=== PATIENT | female | born 1965 | race Caucasian/White ===

== ENCOUNTER 2019-10-13 06:56 | Day surgery (SDC) | payer OTHER, SELFPAY ==
[2019-10-11 10:54] VITALS: BMI 26.6
[2019-10-13 07:12] VITALS: PULSE 99; RESP 18; TEMP 36.6; O2SAT 98
[2019-10-13] MEDS: sodium chloride 0.9% 1,000 ML 30 ML IV (07:20)
--- NOTE | 2019-10-13 07:29 | ANES.PREANE2 ---
Pre-Anesthetic Assessment Pre-Anesthetic Assessment: Height/Weight: Height 1.65 m Weight 72.575 kg Temp Pulse Resp Pulse Ox 97.8 F 99 18 98 10/13/19 07:12 10/13/19 07:12 10/13/19 07:12 10/13/19 07:12 Proposed Procedure: Operation Date: 10/13/19 08:35 Proposed Procedures p Colonoscopy(Not Applicable) - Hussein Flor MD Last intake: Intake Last Liquid Date 10/12/19 Last Liquid Time 17:00 Last Solid Date 10/11/19 Last Solid Time 18:00 Social: Social History: Alcohol (occ) and No tobacco Exam: Pre-Anes Outpt Exam: alert, oriented x 3, clear to auscultation bilaterally and regular rate & rhythm Airway: Submandibular: WNL Cervical ROM: WNL MP: 2 Dentition: Other (teeth ok) History/ROS: No significant history except as noted Pulmonary: Pulmonary: None reported CV/HEM: CV/HEM: None reported : : None reported Hepatic: Hepatic: None reported GI: GI: None reported Metabolic: Metabolic: None reported Musc/skel: Musc/skel: None reported Neuropsych: Neuropsych: None reported Anesthetic Plan: ASA status: 2 Anesthesia: Anesthesia Evaluation and MAC Risk of > 500 ml blood loss (7ml/kg in children): No PFSH Anesthesia PFSH: Medical History Abdominal pain Gastroenteritis Herniated disc Migraines Surgical History History of hemorrhoidectomy History of hysterectomy History of shoulder surgery History of tubal ligation Data Anesthesia Cardiac Studies: No Data to Display
--- NOTE | 2019-10-13 07:52 | W.PM.OPSUD ---
Surgery/Procedure H&P Update DATE OF PROCEDURE: October 13, 2019 DATE H&P PERFORMED: 10/04/19 H&P UPDATE INFORMATION: No changes to prior documentation PLANNED PROCEDURE: Operation Date: 10/13/19 08:35 Proposed Procedures p Colonoscopy(Not Applicable) - Hussein Flor MD
[2019-10-13 09:00] VITALS: BP 113/68; PULSE 93; RESP 16; TEMP 36.6; O2SAT 98
--- NOTE | 2019-10-13 09:04 | ANE.PACU2 ---
Inpatient post-anesthesia follow up: Airway intact: Yes Vital signs: Temperature 97.8 F Pulse Rate 93 Respiratory Rate 16 Blood Pressure 113/68 Pulse Oximetry 98 Oxygen Delivery Me thod Nasal Cannula Oxygen Flow Rate 4 Fraction of Inspir ed Oxygen Hydration adequate: Yes Nausea and vomiting: No Pain level: 1 Mental status: Baseline
[2019-10-13 09:15] VITALS: BP 117/75; PULSE 86; RESP 18; O2SAT 100
== END 2019-10-13 09:24 | disposition home or self-care (01) ==
PROVIDERS: PCP Family Medicine; Visit Provider Surgery
PROC: 0DJD8ZZ Inspection of Lower Intestinal Tract, Via Natural or Artificial Opening Endoscopic (ICD-10-PCS; CPT 45378; principal; 2019-10-13 08:30)
DX: K52.9 Noninfective gastroenteritis and colitis, unspecified (principal); L29.0 Pruritus ani; K57.30 Diverticulosis of large intestine without perforation or abscess without bleeding; M19.90 Unspecified osteoarthritis, unspecified site
CPT/HCPCS: 12345; 45378; J2704; J7030

== ENCOUNTER 2019-12-07 19:54 | Emergency (ER) | payer OTHER, SELFPAY ==
[2019-12-07 21:49] VITALS: BP 170/101; PULSE 101; RESP 20; TEMP 36.7; O2SAT 99
[2019-12-07 21:54] VITALS: RESP 18
--- NOTE | 2019-12-07 22:37 | W.ED.WOUNDLC ---
HPI - Wound/Laceration General: Chief Complaint: Wound/Laceration Stated Complaint: finger lac Time Seen by Provider: 12/07/19 22:22 History of Present Illness: HPI narrative: Cut right hand finger with lip cutter and scorer while working on clothes tonight Onset (ago): minute(s) Location: other (Right index finger) Place: home Patient tetanus UTD: Yes Context: accidental Associated symptoms: Reports no associated symptoms; Denies chills, fever(s), nausea or vomiting Review of Systems Const: Denies: fever(s), chills or body aches Eyes: Denies: change in vision or blurry vision ENMT: Denies: throat pain or nasal congestion Card: Denies: chest pain or dyspnea on exertion Resp: Denies: dyspnea, productive cough or non-productive cough GI: Denies: abdominal pain, nausea or vomiting Musc: Denies: extremity pain Skin/Breast: Reports: other (Laceration right index finger cut side finger off the lip cutter and scorer); Denies: rash Neuro: Denies: headache(s) Psych: Denies: anxiety or depression Saroj/Lymph: Denies: easy bruising PFSH ED PFSH: Medical History Abdominal pain Gastroenteritis Herniated disc Migraines Surgical History History of hemorrhoidectomy History of hysterectomy History of shoulder surgery History of tubal ligation Physical Exam Const: COMMON NORMALS: no acute distress, average body habitus and patient oriented x3 HENMT: COMMON NORMALS: normocephalic HEAD & SCALP: normal to inspection and normocephalic FACE & SINUS: normal facial exam Eye: COMMON NORMALS: conjunctivae normal GENERAL EYE: appearance normal, both eyes and all related structures CONJUNCTIVA: Yes conjunctivae normal Neck/C-Spine: COMMON NORMALS: no JVD Chest: COMMONS NORMALS: normal inspection of the chest Resp: COMMON NORMALS: normal respiratory effort Cardio: COMMON NORMALS: no JVD GI: COMMON NORMALS: Normal to inspection, nondistended, normoactive bowel sounds present Extremity: COMMON NORMALS: normal to inspection and full ROM Neuro: COMMON NORMALS: patient oriented x3 Skin: OTHER: Lateral side of right index finger near the nails cut off no skin left to sew up avulsion of skin oozing blood Procedures Laceration Laceration 1: Site: hand (Right index finger) Side (If applicable): right Size (cm): 2 Description: other Subcutaneous layer closed with: other (Applied Surgicel over wound and wrapped) Course Vital Signs: Vital signs: Vital Signs Temperature 98.1 F 12/07/19 21:49 Pulse Rate 101 H 12/07/19 21:49 Respiratory Rate 18 12/07/19 21:54 Blood Pressure 170/101 12/07/19 21:49 Pulse Oximetry 99 12/07/19 21:49 Discharge Plan Discharge Prescriptions: No Action hydrocortisone acetate 30 mg suppository ID RF: 0 Coding Level of Care Code ED Test Preparation Tutor for Husam Bates
[2019-12-07] MEDS: HYDROcodone-acetaminophen 7.5-325 mg Tablet 1 TAB PO (22:45)
== END 2019-12-07 22:51 | disposition home or self-care (01) ==
PROVIDERS: Emergency Provider Nurse Practitioner Family; PCP Family Medicine
DX: S61.210A Laceration without foreign body of right index finger without damage to nail, initial encounter (principal); W26.0XXA Contact with knife, initial encounter
CPT/HCPCS: 12001; 12345; 99281; 99283

== ENCOUNTER 2021-04-01 13:25 | Outpatient (CLI) | payer OTHER, SELFPAY ==
--- NOTE | 2021-04-01 13:40 | CT_ITS ---
WS: [id number] Exam: CT abdomen pelvis w con* [id number] Date/Time of Exam: 04/01/2021 1:40 PM Reason For Exam: CHRONIC DIARRHEA, ELEVATED LIVER ENZYMES DLP: 1169.[address] scans at [facility] use at least one of these dose optimization techniques: automated e xposure control; mA and/or kV adjustment per patient size (includes targeted exams where dose is matc hed to clinical indication); or iterative reconstruction. The abdomen is evaluated in the axial plane with sagittal coronal reformatted images. IV and oral con trast are administered. Compared to prior study 08/05/2013 Lower lung zones are clear. Hepatic steatosis is noted. No calcified stones in the gallbladder. The s pleen, stomach and pancreas are unremarkable. The abdominal aorta is normal in caliber. The portal ve in and IVC are patent. Normal adrenal glands. Unremarkable kidneys. Small bowel loops are normal in c aliber. Unremarkable appendix visualized. There is diverticulosis of the sigmoid colon but no sign of acute diverticulitis. No free air. No lymphadenopathy. Intact urinary bladder. The uterus and ovarie s are not identified. Subcentimeter lipoma in the right pelvis. No significant mass or lymphadenopath y in the pelvis. No destructive bone lesions are seen. Tiny fat filled periumbilical hernia. CT/CT abdomen pelvis w con* [id number] IMPRESSION: 1. No mass, lymphadenopathy or acute finding. 2. Hepatic steatosis. 3. Colonic diverticulosis. No sign of acute diverticulitis.
[2021-04-01] MEDS: iohexol 300 mg/mL 50 mL Btl PO (15:34)
[2021-04-01] MEDS: iohexol 300 mg/mL 100 mL Btl IV (15:34)
== END 2021-04-01 13:26 | disposition home or self-care (01) ==
PROVIDERS: PCP Family Medicine; Visit Provider Family Medicine
DX: K52.9 Noninfective gastroenteritis and colitis, unspecified (principal); R74.8 Abnormal levels of other serum enzymes; K57.90 Diverticulosis of intestine, part unspecified, without perforation or abscess without bleeding; K76.0 Fatty (change of) liver, not elsewhere classified
CPT/HCPCS: 74177; Q9967

== ENCOUNTER 2022-10-03 07:02 | Outpatient (CLI) | payer OTHER, SELFPAY ==
--- NOTE | 2022-10-03 07:26 | MM_ITS ---
WS: [id number] SCREENING DIGITAL TOMOSYNTHESIS MAMMOGRAM WITH CAD HISTORY: SCREENING COMPARISON: 03/11/2016 Bilateral CC and MLO with tomosynthesis views submitted. Synthetic mammography reviewed. Computer aid ed detection analyzed. Breast composition: There are scattered areas of fibroglandular density. No suspicious masses, microc alcifications or architectural distortion. MM/[place] [id number] IMPRESSION: BI-RADS: 1-Negative FOLLOW UP: 1 Year Follow-up
== END 2022-10-03 07:03 | disposition home or self-care (01) ==
LOC: RAD 07:04
PROVIDERS: PCP Family Medicine; Visit Provider Family Medicine
DX: Z12.31 Encounter for screening mammogram for malignant neoplasm of breast (principal)
CPT/HCPCS: 77063; 77067

== ENCOUNTER 2023-10-20 08:56 | Outpatient (CLI) | payer OTHER, SELFPAY ==
--- NOTE | 2023-10-20 09:00 | MM_ITS ---
WS: [id number] BILATERAL 3D TOMOSYNTHESIS DIGITAL SCREENING MAMMOGRAPHY WITH CAD CLINICAL INFORMATION: SCREENING HISTORY: Screening mammogram. No current complaints. COMPARISON: 2022 TECHNIQUE: Bilateral CC and MLO views. FINDINGS: Scattered fibroglandular densities bilaterally. No suspicious focal mass, asymmetry, calcifications, or architectural distortion. No evidence of malignancy. MM/[place] [id number] IMPRESSION: BI-RADS: 1-Negative FOLLOW UP: 1 Year Follow-up Recommend return to annual screening mammography.
== END 2023-10-20 08:57 | disposition home or self-care (01) ==
LOC: MOBLMAM 09:03
PROVIDERS: PCP Nurse Practitioner; Visit Provider Nurse Practitioner
DX: Z12.31 Encounter for screening mammogram for malignant neoplasm of breast (principal); R92.323 Mammographic fibroglandular density, bilateral breasts
CPT/HCPCS: 77063; 77067

== ENCOUNTER 2024-11-09 08:59 | Outpatient (CLI) | payer OTHER, SELFPAY ==
--- NOTE | 2024-11-09 09:00 | MM_ITS ---
WS: [id number] BILATERAL SCREENING DIGITAL TOMOSYNTHESIS MAMMOGRAM WITH CAD HISTORY: SCREENING COMPARISON: 10/20/2023, 10/03/2022 Bilateral CC and MLO views with tomosynthesis and synthetic mammography submitted. Computer aided detection analyzed. Breast composition: There are scattered areas of fibroglandular density. No suspicious masses, microcalcifications or architectural distortion. MM/MM scr BI tomosynthesis [id number] IMPRESSION: BI-RADS: 1 - Negative. FOLLOW UP: 1 Year Follow-up
== END 2024-11-09 09:00 | disposition home or self-care (01) ==
PROVIDERS: PCP Family Medicine; Visit Provider Family Medicine
DX: Z12.31 Encounter for screening mammogram for malignant neoplasm of breast (principal); R92.323 Mammographic fibroglandular density, bilateral breasts
CPT/HCPCS: 77063; 77067